=== PATIENT | male | born 1980 | race Caucasian/White ===

== ENCOUNTER 2016-07-14 13:01 | Inpatient (IN) | payer OTHER ==
[~2016-07-14] VITALS: Ht 188 cm; Wt 103.5 kg
[2016-07-14 13:07] VITALS: BP 144/100; PULSE 108; RESP 18; O2SAT 95
[2016-07-14 14:11] LABS: EOSINOPHILS % (AUTO) 0 % (0-5); Platelet Count 294 bil/L (150-400)
[2016-07-14 14:15] LABS: BASOPHILS % (AUTO) 0.1 % (0-3); MONOCYTES % (AUTO) 5.3 % (4-12); Mean Corpuscular Hemoglobin 29.2 pg (27.0-35.0)
[2016-07-14] MEDS ORDERED: 0.9% Sodium Chloride 1,000 ML IV ONE (14:35)
[2016-07-14] MEDS ORDERED: Ondansetron 8 mg ODT Tablet PO ONE (14:35)
[2016-07-14 14:40] LABS: Magnesium 2.4 mg/dL (1.6-2.6)
[2016-07-14] MEDS ORDERED: Multivitamin w/Vit K Inj 10 ML, Thiamine Inj 100 MG, Folic Acid Inj 1 MG, Magnesium Sul... IV ONE ×5 (15:12)
[2016-07-14] MEDS ORDERED: Pantoprazole 4 mg/mL 10 mL Inj IVPUSH ONE (15:15)
--- NOTE | 2016-07-14 15:49 | DRSVH ---
PROCEDURE: X-RAY CHEST ONE VIEW ([id number]) INDICATIONS: vomiting, Left ventricular hypertrophy TECHNIQUE: One view of the chest was acquired. COMPARISON: None. FINDINGS: Surgical changes and devices: None. Lungs and pleura: No pleural effusions or pneumothorax. Lungs are clear. Mediastinum: Mediastinal contours appear normal. Heart size is normal. Bones and chest wall: No suspicious bony lesions. Overlying soft tissues appear unremarkable. IMPRESSION: Normal for age, no evidence of cardiomegaly or CHF. Dictated by: Otis Betancur M.D. on 07/14/2016 at 15:47 Approved by: Otis Betancur M.D. on 07/14/2016 at 15:47
--- NOTE | 2016-07-14 15:58 | ED.REPORT ---
HPI-NVD Date of Service Jul 14, 2016 ED Provider: Beto Osborne MD 35yoM with past medical history remarkable for psoriasis presents with three days of nausea, vomiting and diarrhea. The patient states that he has thrown up approximately 5 times over these three days and the vomit is described as coffee grounds. The patient also endorses some black diarrhea. The patient states that his last meal prior to getting sick was eggs and orozco and nobody else got sick after the meal and he has no other sick contacts. The patient states that he has abdominal pain which is colic like in nature waxing and waning from 01/13 to 08/13. The worse pain is in his lower abdomen however the pain radiates up into his chest. The patient states he has never had any symptoms like this prior and was completely normal healthy prior to the onset. He denies fever or chills. He states that he has not had any food or water intake for the last three days due to the N/V. He denies taking chronic NSAIDS but states that he drinks 375mL of hard liquor daily. Nursing Notes Stated Complaint: POSSIBLE DEHYDRATION/VOMITING Chief Complaint: Male Abdominal Pain Nursing Notes Reviewed: Yes Allergies: Coded Allergies: No Known Allergies (Unverified , 07/14/16) No Active Prescriptions or Reported Meds General Time Seen by MD: 15:36 Chief Complaint Nausea, Vomiting, Diarrhea, Abd pain, cramping Hx Obtained From: Patient, Other family... (brother in law) Arrived By: Walk-in Onset Occurred: 3 days ago Symptom Duration: Since onset Vomiting: Vomiting coffee grounds, Vomiting 4-6 episodes Diarrhea: Diarrhea is bloody (described as dark tarry loose stool), Diarrhea 4- 6 episodes Location: : Abdomen lower: Chest pain: Diffuse Quality: Cramping, Dull Severity: Current: Pain level 3 out of 10 Severity: Maximum: Pain level 8 out of 10 Associated with: Reports: Abdominal pain, Anorexia, Blood in stool Recent Healthcare: No recent doctor visit Similar Sx Previous: No Past Medical History Past Medical History Psoriasis Social History Alcohol Use: >5 per day Drug Use: Denies drug use Other Social History: Good social support, Local resident ([place]) Ambulatory Status Independent Review of Systems Complete sys rev & neg: except as marked. Physical Exam Initial Vital Signs Vital Signs (First) Date Time Temp Pulse Resp B/P Pulse Ox O2 Delivery O2 Flow Rate FiO2 07/14/16 13:07 36.8 108 18 144/100 95 Room Air Initial VS: Reviewed Head / Eyes: Atraumatic, Normocephalic, PERRL ENT: Conjunctiva normal, No scleral icterus Neck: Supple, Non-tender, Full range of motion Respiratory: Breath sounds normal, Clear to auscultation, No respiratory distress Cardiovascular: Regular rate & rhythm, Heart sounds normal, Intact distal pulses Back: No CVA tenderness Lymphatic: No lymphadenopathy Extremities: Vascular intact, Neuro intact, No swelling, No tenderness Skin: Warm, Dry, No cyanosis Neurologic: Alert, Oriented, Nonfocal Psychiatric: Mood/affect normal, Behavior normal, Normal thought content Distress / Hydration: Positive: Distress mild Appearance / Presentation: Positive: Ill appearing/not toxic, Uncomfortable Abdomen: Atraumatic, Soft, No guarding, No rebound, No palpable mass, No pulsatile mass Tenderness/Guarding/Rebound: Positive: Tender diffuse Bowel Sounds / Distention: Positive: Bowel sounds hyperactive Interpretation & Diagnostics Lab Results Interpretation Result Diagram: 07/14/16 2030 07/14/16 1400 Test 07/14/16 14:00 07/14/16 14:30 Sodium Level 137mEq/L (134-144) Potassium Level 4.5mEq/L (3.5-5.2) Chloride Level 97mEq/L (97-108) Carbon Dioxide Level 21mmol/L (18-29) Blood Urea Nitrogen 17mg/dL (6-20) Creatinine 0.82mg/dL (0.76-1.27) Estimat Glomerular Filtration Rate 115mL/min (>59) Glucose Level 128mg/dL (60-99) Calcium Level 8.5mg/dL (8.5-10.1) Magnesium Level 2.4mg/dL (1.6-2.6) Total Bilirubin 0.8mg/dL (0.0-1.2) Aspartate Amino Transf (AST/SGOT) 57U/L (0-50) Alanine Aminotransferase (ALT/SGPT) 70U/L (0-44) Alkaline Phosphatase 81U/L (25-150) Total Protein 7.6g/dL (6.4-8.4) Albumin 4.7g/dL (3.4-5.0) Lipase 20U/L (13-60) Hold Galvez Top Tube Received (Received) Alcohol, Quantitative 316mg/dL (0-10) Point of Care Testing: Guaiac - heme positive ECG Interpretation ECG Interpretation: Sinus rhythm LVH Interpreted by: ED physician Normal ECG Interpretation: Normal rate, Normal sinus rhythm, No acute ischemic changes Atrium and Vent Size: Ventricle enlarged - L X-Ray Chest Interpretation Chest Xray Interpretation: IMPRESSION: Normal for age, no evidence of cardiomegaly or CHF. Dictated by: Otis Betancur M.D. on 07/14/2016 at 15:47 View: Portable, 1 view Interpretation / Wet Read by: Interpret - Radiologist Re-Eval/Medical Decision Med Decision/Clinical Course 35yoM with psoriasis and alcohol use disorder with 3 days of NVD with reports of coffee ground emesis and dark tarry stool. CBC positive for polycythemia and leukocytosis. CMP positive for transaminitis. Stool guiac positive. CXR ordered checking for cardiomegally and pneumomediastinum currently pending. Oral Zofran started prior to IV started. Running 1L NS and 1L banana bag for thiamine replacement. R/U unstable GI bleed and borhave. Patient care transferred to ne, Dr. Beto Osborne, at 15:00. Reviewed vital signs. Borderline tachycardic at 108 but otherwise stable. Labs Reviewed as follows. Leukocytosis 10.2 Hemo concentration Hct 51.5 No significant electrolyte abnormalities Good renal function Mildly elevated transaminases EtOH 316 Rechecked at 17:00. History reviewed: 3 days of nausea, vomiting, increased sleeping and generalized malaise. Pt noticed blood since onset. Pt denies any history of gastric ulcers. No ibuprofen or Naproxen. Last drank alcohol 2 days ago. Daily the patient drinks 1/2 fifth. On exam the patient has tenderness to the epigastrium with emesis basis at bedside that does appear coffee ground. Will contact GI. Patient unable to explain why his blood alcohol is greater than 300 despite not drinking in 2 days. She continued with significant nausea and coffee ground emesis and was treated with: Reglan Benadryl Patient discussed with Dr. Mosqueda (GI), he requests PPI drip, NPO at midnight and admission to hospitalist service with plan for upper endoscopy in the morning. Discussed with the admitting hospitalist and transferred in stable condition. Consultation #1: Referral / Consult Name: Otto Goldberg MD Call Returned at: 18:06 Note: Liquor Runner- Request admit. NPO at midnight. PPI lynn. Will see tomorrow. Consultation #2: Referral / Consult Name: Je Arriola MD Consulted With: Hospitalist Call Returned at: 18:23 Oracle Ebs Developer: Will see patient, Agrees with eval, Agrees with plan, Accepts admit Differential Diagnosis: Positive: Acute gastroenteritis, Boerhaave syndrome, Dehydration, Gastritis, Hepatitis (not standard AST:ALT ratio of 2:1 for alcoholic hepatitis), Kat-Rico syndrome Counseled Regarding: Diagnosis, Lab results, Need for admission Discharge & Departure Shift Change Sign-Out Patient Care Transferred: Yes Discussed Complaint(s): Yes Laboratory Evaluation: Ordered, not yet done Additonal Information: Awaiting labs, hydration. Family reassessment reevaluation and disposition planning. Care reviewed with Dr. Osborne. Impression: Primary Impression: Coffee ground emesis Additional Impressions: Upper GI bleed Alcohol abuse Tachycardia Dehydration Disposition: ADMITTED TO HOSPITAL Discharge Condition All VS Reviewed: Yes Referrals: NOPCP (PCP) Care Transferred to: Dr. Osborne Care Transferred at: 15:00 Crit Care Except Billable Proc Time Spent: 30-74 minutes Services Performed: Patient management by me, Time spent at bedside, Reviewing test results, Reviewing imaging, Discussing patient care, Documentation in record, Time with fam/surrogate EDSupervising Provider for APC: Beto Osborne MD Attestation Portions of this note were transcribed by Lainey Fitzgerald. I, (Dr. Osborne) personally performed supplemental history, physical exam and medical decision- making; I reviewed and confirmed the accuracy of the information in the transcribed note. Signed by: Lainey Fitzgerald. Naldoibjackie, 07/14/2016, 1802 Attending Statement Patient seen and examined with the resident. Care turned over to Dr. Osborne at Change of Shift ENMANUEL LEIGH DO Jul 14, 2016 15:54 Mayra Mayo MD Jul 14, 2016 15:57 Lainey Fitzgerald Jul 14, 2016 16:31 Beto Osborne MD Jul 14, 2016 18:16 Discussed Complaint(s): Yes Laboratory Evaluation: Ordered, not yet done Additonal Information: Awaiting labs, hydration. Family reassessment reevaluation and disposition planning. Care reviewed with Dr. Osborne. Impression: Primary Impression: Coffee ground emesis Additional Impressions: Upper GI bleed Alcohol abuse Tachycardia Dehydration Disposition: ADMITTED TO HOSPITAL Discharge Condition All VS Reviewed: Yes Referrals: NOPCP (PCP) Care Transferred to: Dr. Osborne Care Transferred at: 15:00 Crit Care Except Billable Proc Time Spent: 30-74 minutes Services Performed: Patient management by me, Time spent at bedside, Reviewing test results, Reviewing imaging, Discussing patient care, Documentation in record, Time with fam/surrogate EDSupervising Provider for APC: Beto Osborne MD Scribe Attestation Portions of this note were transcribed by Lainey Fitzgerald. I, (Dr. Osborne) personally performed supplemental history, physical exam and medical decision- making; I reviewed and confirmed the accuracy of the information in the transcribed note. Signed by: Lainey Fitzgerald. Rosie, 07/14/2016, 1802 Attending Statement Patient seen and examined with the resident. Care turned over to Dr. Osborne at Change of Shift ENMANUEL LEIGH DO Jul 14, 2016 15:54 Mayra Mayo MD Jul 14, 2016 15:57 Lainey Fitzgerald Jul 14, 2016 16:31 Beto Osborne MD Jul 14, 2016 18:16
[2016-07-14] MEDS ORDERED: Ondansetron 2 mg/mL 2 mL Inj ONE (16:32)
[2016-07-14 16:50] VITALS: BP 152/101; PULSE 91; RESP 16; O2SAT 98
[2016-07-14] MEDS ORDERED: MetoCLOpramide 5 mg/mL 2 mL Inj IVPUSH PRN (17:15)
[2016-07-14] MEDS ORDERED: Albuterol 2.5 mg/3 mL Inhalation Solution NEB ONE (17:26)
[2016-07-14] MEDS ORDERED: Lactated Ringer's 1,000 ML IV SCH (18:09)
[2016-07-14] MEDS ORDERED: Ondansetron 2 mg/mL 2 mL Inj IVPUSH PRN (18:10)
[2016-07-14] MEDS ORDERED: Pantoprazole Inj 80 MG, Pharmacy To Mix 1 EA in 0.9% Sodium Chloride 80 ML IV ONE ×2 (18:15)
[2016-07-14] MEDS ORDERED: Polyethylene Glycol (PEG) 17 Gm Powder PO PRN (18:35)
[2016-07-14] MEDS ORDERED: Alum-Mag Hydrox-Simeth 30 mL Suspension PO PRN (18:35)
[2016-07-14 19:06] VITALS: BP 135/81; PULSE 90; RESP 22; O2SAT 99
--- NOTE | 2016-07-14 19:27 | PCM.HPMED ---
Subjective Date of Service Jul 14, 2016 Primary Provider: Admitting Physician: Je Arriola MD Primary Care Physician: Fe Attending Physician: Je Arriola MD Admit Status: From the Emergency Department, Full Admit Chief Complaint: Coffee-ground emesis/3 days Dark loose stool/3 days Epigastric pain/ 3 days History of Present Illness: 35-year-old gentleman with no significant past medical history came to emergency room due to Coffee-ground emesis,dark loose stool and epigastric pain of 3 days. He states he had multiple episodes of coffee-ground emesis last 3 days. He also had dark loose stool. He complains of intermittent, colicky, nonradiating, epigastric pain,5-6/10. Drinks alcohol, 1/2 a fifth of Vodka daily. Last drink this morning Denies aspirin, NSAIDs or any blood thinner use . No abdominal distention or any stigmata of cirrhosis. Denies fever In ED, HR 108, BP 144/100, sats 95% on RA, WBC 10.0,Hb 17.9, platelets 290, AST 57, ALT 70, lipase 20, alcohol level 316 IV fluids given, Protonix drip started, GI consulted and plans to do EGD tomorrow Review of Systems: Comprehensive review of systems performed, pertinent positives and negatives included in history of present illness Allergies Coded Allergies: No Known Allergies (Unverified , 07/14/16) Home Medications none PMH Psoriases Alcohol drinking Surgical History Hernia repair ankle surgery for Leg cellulitis Right hand surgery Family History Both parents are alive, no medical issues Social History Occupation: director construction services Hx Alcohol Use: Yes ("DAILY" LAST DRANK 07/14, drinks half a fifth of vodka daily ) Hx Substance Use: No (DENIES) Exam Vital Signs Vital Sign - Last Date Time Temp Pulse Resp B/P Pulse Ox O2 Delivery O2 Flow Rate FiO2 07/14/16 19:06 90 22 135/81 99 Room Air 07/14/16 13:07 36.8 Exam Gen. Acutely sick looking, actively vomiting, small amount of coffee-ground emesis seen in a bowl at bedside HEENT: Head is normocephalic atraumatic, Pupils equal and reactive, extraocular movements intact, Lungs clear to auscultation bilaterally Heart regular rate and rhythm without murmurs gallops or rubs Abdomen soft nontender without hepatosplenomegaly Extremities pulses are present dorsalis pedis posterior tibialis and radial. tSkin is warm and dry there are no rashes, Psych alert and oriented to person place and time Neuro cranial nerves II through XII are grossly intact Lymph: There is no lymphadenopathy appreciated in the cervical supra infraclavicular regions : no estes Lab and Diagnostics Result Diagram: 07/14/16 1400 07/14/16 1400 X-Rays, CTs and MRIs CXr IMPRESSION: Normal for age, no evidence of cardiomegaly or CHF. Dictated by: Otis Betancur M.D. on 07/14/2016 at 15:47 Assessment & Plan 35-year-old gentleman with no significant past medical history came to emergency room due to Coffee-ground emesis,dark loose stool and epigastric pain of 3 days # Upper GI bleeding, POA, acute -Possibly due to alcoholic erosive gastritis,PUD possible -Continue IV fluids at 100ml/h -Continue Protonix drip -npo -EGD tomorrow -Serial hemoglobin -Zofran as needed #Dehydration -Hemoglobin 17.9, hemoconcentrated -2 L Ns bolused, continue with 100ml/h -Serial hematocrits # Transaminitis -Due to alcohol -Follow-up LFT # Alcohol abuse disorder -Alcohol level 316, unlikely to withdraw now -watch out for withdrawal syndrome -banana bag given in ED -Counseled - referral for outpatient resources information ppx:ppi drip,no dvt ppx given GI bleed full code Je Arriola MD Jul 14, 2016 19:27
[2016-07-14 19:51] VITALS: BP 135/81; PULSE 90; RESP 22; O2SAT 99
[2016-07-14 20:03] LABS: APPEARANCE,URINE HAZY (CLEAR,HAZY); COLOR,URINE YELLOW (YELLOW); OCCULT BLOOD,URINE NEGATIVE (NEGATIVE); PH,URINE 6.5 (5.0-8.0); UROBILINOGEN,URINE NORMAL (NORMAL)
[2016-07-14 20:05] VITALS: BP 139/70; PULSE 61; RESP 20; O2SAT 98
[2016-07-14 20:07] VITALS: PULSE 85
[2016-07-14] MEDS: Pantoprazole Inj 80 MG in 0.9% Sodium Chloride 80 ML IV SCH (20:08)
[2016-07-14] MEDS: 0.9% Sodium Chloride 1,000 ML IV SCH (20:08)
[2016-07-14] MEDS ORDERED: Promethazine 25 mg/mL Inj IV PRN (20:15)
[2016-07-14] MEDS ORDERED: PROMETHAZINE IV PRN (20:30)
[2016-07-14] MEDS ORDERED: SODIUM CHLORIDE PHA MIX 0.9% IV PRN (20:30)
[2016-07-14 20:45] LABS: BASOPHILS % (AUTO) 0.2 % (0-3); EOSINOPHILS % (AUTO) 0.2 % (0-5); Mean Corpuscular Hemoglobin 30.1 pg (27.0-35.0); Mean Corpuscular Volume 85.7 fL (81-100); NEUTROPHILS % (AUTO) 71.6 % (40-74); Platelet Count 221 bil/L (150-400)
[2016-07-15] VITALS (9 sets, daily range): BP systolic 120–147; BP diastolic 68–82; PULSE 64–86; RESP 17–20; O2SAT 96–99
[2016-07-15] MEDS: 0.9% Sodium Chloride 1,000 ML IV SCH ×4 (04:29→21:45)
[2016-07-15 06:46] LABS: BASOPHILS % (AUTO) 0.2 % (0-3); EOSINOPHILS % (AUTO) 1.9 % (0-5); MONOCYTES % (AUTO) 8.4 % (4-12); Mean Corpuscular Hemoglobin 29.8 pg (27.0-35.0); Mean Corpuscular Volume 86.3 fL (81-100); NEUTROPHILS % (AUTO) 56.4 % (40-74); Platelet Count 177 bil/L (150-400)
[2016-07-15] MEDS ORDERED: Ketamine 10 mg/mL 20 mL Inj ONE (08:57)
[2016-07-15] MEDS ORDERED: fentaNYL-PF 50 mCg/mL 2 mL Inj ONE (08:57)
[2016-07-15] MEDS: Pantoprazole Inj 80 MG in 0.9% Sodium Chloride 80 ML IV SCH (10:00)
[2016-07-15] MEDS ORDERED: Propofol 10,000 mCg/mL 20 mL Inj ONE (10:39)
[2016-07-15 12:42] LABS: INR 1.03 ratio
--- NOTE | 2016-07-15 12:46 | PCM.PNMED ---
Subjective Date of Service Jul 15, 2016 Subjective 35-year-old gentleman with no significant past medical history came to emergency room due to Coffee-ground emesis,dark loose stool and epigastric pain of 3 days. This morning he is sleeping, he easily awakes. He is mildly diaphoretic and tremulous with motion in hands bilaterally, he states he has restless legs. He continues to have epigastric pain and generally feels unwell with diarrhea. Exam Vital Signs Vital Sign - Last Date Time Temp Pulse Resp B/P Pulse Ox O2 Delivery O2 Flow Rate FiO2 07/15/16 05:10 36.9 86 20 136/75 97 Room Air Intake and Output 07/14/16 07/14/16 07/15/16 Cumulative From/Thru 15:00 23:00 07:00 07/14/16 13:07 - 07/15/16 06:21 Intake Total 1000 ml 1348 ml 2348 ml Balance 1000 ml 1348 ml 2348 ml Intake IV Total 1000 ml 1348 ml 2348 ml Exam General: Mildly diaphoretic, well-developed, well-nourished, appropriately interactive HEENT: Normocephalic, atraumatic. External ears without defect. Neck: Supple with full range of motion. No jugular venous distension. Cardiovascular: Regular rate and rhythm with no murmurs, rubs, or gallops appreciated Pulmonary: Clear to auscultation bilaterally with no crackles, wheezes, or rhonchi. Normal respiratory effort with no use of accessory muscles. Abdomen: Bowel tones present. Soft, nontender, nondistended. No hepatosplenomegaly or masses appreciated. Extremities: No clubbing, cyanosis, edema, or lymphadenopathy appreciated. Skin: Normal temperature, turgor, and texture; no rash, ulcers, or subcutaneous nodules appreciated. Neurological: Cranial nerves grossly intact. Normal muscle strength, tone, and bulk. tremulous in hands with movement, No known gait impairment. Psychiatric: Normal mood and affect. Alert and oriented to person, place, and time. Lab and Diagnostics Result Diagram: 07/15/16 0632 07/14/16 1400 X-Rays, CTs and MRIs CXr IMPRESSION: Normal for age, no evidence of cardiomegaly or CHF. Dictated by: Otis Betancur M.D. on 07/14/2016 at 15:47 Assessment & Plan 35-year-old gentleman with no significant past medical history came to emergency room due to Coffee-ground emesis,dark loose stool and epigastric pain of 3 days 1. Upper GI bleeding, POA, acute -Possibly due to alcoholic erosive gastritis,PUD possible -Continue IV fluids at 100ml/h -Continue Protonix drip -NPO -EGD this afternoon -Serial hemoglobin [id number] -Zofran as needed 2. Dehydration -Hemoglobin 17.9, hemoconcentrated -2 L Ns bolused on admission, continue with 100ml/h -Serial hematocrits [id number] 3. Transaminitis -Likely due to alcohol consumption -Follow-up LFT 4. Alcohol abuse disorder -Alcohol level 316 in ED, unlikely to withdraw now -watch out for withdrawal syndrome, -CINM protocol initiated -banana bag given in ED -Counseled -SW referral for outpatient resources information GI propholaxis:ppi drip, SCD's only for dvt ppx due to GI bleed Full code Pain Evaluation: Adequate Pain Control GI Prophylaxis: Proton Pump Inhibitor VTE Mechanical Devices: Intermittant Pneumatic CD Resuscitation Status: CPR: Attempt Resuscitation Attending Statement The patient was seen and examined together with Dr. Narvaez on 07/15/2016 and I agree with the history, exam and plan as outlined in the note above. Whitney Narvaez DO Jul 15, 2016 07:02 Navin Krause MD Jul 16, 2016 11:49
[2016-07-15 12:58] LABS: Creatine Kinase 440 U/L (21-232); Phosphorus 2.7 mg/dL (2.5-4.9)
--- NOTE | 2016-07-15 14:21 | PCM.HPANE ---
Patient Data Surgeon Admitting Provider:Je Arriola MD Attending Provider:Je Arriola MD Primary Care Physician:Nopcp Other Provider: Reason for Visit Coffee Ground Emesis Ht/WT & BMI Height (Feet): 6 Height (Inches): 2.00 Weight (Kilograms): 103.500 Body Mass Index 29.00 Allergies Coded Allergies: No Known Allergies (Unverified , 07/14/16) Past Anesthesia History Anesthesia History: Denies:: Abnormal Airway, Anesthesia Reactions, Difficult Intubation Diabetes History Hx Diabetes?: No MRSA MRSA: No Medications Hypertension Medication: No Home Meds Incl Beta Blanca: No No Active Prescriptions or Reported Meds History History of ENT Problems?: No HEENT History: Denies:: Abnormal Airway Difficult Intubation Teeth Condition: Missing Teeth Other HEENT Pertinent History: MISSING UPPER TWO FRONT TEETH Hx of Heart Problems?: No Cardiovascular History: Denies:: Congestive Heart Failure Hypertension Hx of Respiratory Problem?: No Respiratory History: Denies:: Tuberculosis Hx Neurologic Problems?: No Neurological History: Denies:: CVA Hx of GI Problems?: Yes Gastrointestinal History: Positive for:: Gastrointestinal Bleeding (current) Rectal Bleeding (BLACK) Denies:: Gall Bladder Disease Liver Disease Other GI Pertinent History: alcoholism Hx of Problems?: No Male Hx: Denies:: Prostate Problems Scrotal Mass Testicular Surgery Hx Musculoskeletal Problems?: No Hx of Psycho/Social Problems?: No Hx Surgeries?: Yes (HERNIA, CELLULITIS (LEFT ANKLE)) Hx Any Other Health Problems?: Yes Other History: Denies:: Cancer Hospitalization Thyroid Disease History Blood Transfusions: Positive for:: Accept Blood Products? Denies:: Blood Transfusions Hx Diabetes: No Occupation: construction workerHx Alcohol Use: Yes ("DAILY" LAST DRANK 07/14, drinks half a fifth of vodka daily)Hx Substance Use: No (DENIES) Smoking Status: Current Every Day Smoker Have You Smoked inLast 12 mo: YesApprox How Many Cigarettes/day: 5 CIGS/DAILY Stop/Bang Treated for Sleep Apnea?: No Do You Have a CPAP Machine?: No S-Snoring: Do You Snore Loudly: No T-Tired: feel tired, fatigued: No O-Obsered: Observed not breath: No P-Blood Pressure: treated: No B- Body Mass Index > 35 kg/m2: No A- Age over 50: No N- Neck Large Circumference: No G- Gender Male: Yes CULLEN Total Score: 1 Risk Assessment Category Category 1A: Patient has history of documented sleep apnea, and HAS NOT received any narcotic, sedative or anesthesia administration during this stay. Category 1B: Patient has history of documented sleep apnea, and HAS received any narcotic , sedative or anesthesia administration during this stay Category 2: Patient has SUSPECTED Obstructive Sleep Apnea, and HAS received any narcotic , sedative or anesthesia administration during this stay. Category 3: Patient has SUSPECTED Obstructive Sleep Apnea and HAS NOT received narcotic, sedative or anesthesia administration during this stay. Category 4: Outpatient in Procedural Areas with known sleep apnea or who screen positive for High Risk via the STOP/BANG questionnaire. Exam Exam Vital Signs Vital Signs Date Time Temp Pulse Resp B/P Pulse Ox O2 Delivery O2 Flow Rate FiO2 07/15/16 10:16 36.9 82 20 129/69 97 Room Air 07/15/16 08:00 86 General Appearance: Alert, Oriented X3, Cooperative, Mild Distress HEENT/AIRWAY: MP 2 Lungs: Clear to Auscultation, Normal Air Movement Heart: Exam Unremarkable, Regular Rate/Rhythm, No Murmurs/Rubs/Gallops Meds/Labs/Diagnostics Admission Meds Current Medications Ondansetron HCl 8 mg 8 mg ONCE ONCE PO Last administered on 07/14/16 15:00; Start 07/14/16 at 14:35; Stop 07/14/16 at 14:46; Status DC Sodium Chloride 1,000 ml @ 0 mls/hr Q0M ONCE IV Last administered on 07/14/16 15:00; Start 07/14/16 at 14:35; Stop 07/14/16 at 14:46; Status DC Multivitamins/ Thiamine HCl/ Folic Acid/ Magnesium Sulfate/ Sodium Chloride ( Influvite Adult Inj/Vitamin B1 Inj/Folic Acid Inj/Magnesium Sulfate 50% Inj/ Normal Saline) 1,015.2 ml @ 508 mls/ hr Q2H ONCE IV Last administered on 16:10; Start 07/14/16 at 15:12; Stop 07/14/16 at 17:11; Status DC Pantoprazole (Protonix Inj) 40 mg ONCE ONCE IVPUSH Last administered on 16:10; Start 07/14/16 at 15:15; Stop 07/14/16 at 15:16; Status DC Ondansetron HCl (Zofran Inj) 8 mg STK-MED ONCE .ROUTE Last administered on 16:41; Start 07/14/16 at 16:32; Stop 07/14/16 at 16:35; Status DC Diphenhydramine HCl 25 mg 25 mg ONCE ONCE IVPUSH Last administered on 17:46; Start 07/14/16 at 17:15; Stop 07/14/16 at 17:16; Status DC Sodium Chloride 1,000 ml @ 125 mls/hr Q8H IV Last administered on 07/15/16 13: 18; Start 07/14/16 at 18:35 Pantoprazole/ Sodium Chloride (Protonix Inj/ Normal Saline) 100 ml @ 10 mls/hr Q10H IV Last administered on 07/15/16 10:00; Start 07/14/16 at 19:10 Chlorpromazine (Thorazine) 25 mg TID PO Last administered on 07/15/16 00:21; Start 07/15/16 at 00:05 Labs Test 07/14/16 14:00 07/14/16 14:30 07/14/16 19:45 07/15/16 06:32 Magnesium Level 2.4mg/dL (1.6-2.6) Lipase 20U/L (13-60) Hold Galvez Top Tube Received (Received) Alcohol, Quantitative 316mg/dL (0-10) Urine Color Yellow (YELLOW) Urine Appearance Hazy (CLEAR,HAZY) Urine pH 6.5 (5.0-8.0) Urine Specific [place] 1.025 (1.003-1.035) Urine Protein Negativemg/dL (NEG,TRACE) Urine Glucose (UA) Negativemg/dL (NEGATIVE) Urine Ketones Negativemg/dL (NEGATIVE) Urine Occult Blood Negative (NEGATIVE) Urine Nitrite Negative (NEGATIVE) Urine Bilirubin Negative (NEGATIVE) Urine Urobilinogen Normalmg/dL (NORMAL) Urine Leukocyte Esterase Negative (NEGATIVE) Urine RBC 0-2/hpf (0-2) Urine WBC 0-5/hpf (0-5) Urine Epithelial Cells None/hpf (NONE-MOD) Urine Crystals None seen (NONE SEEN) Urine Bacteria Few/hpf (NONE-FEW) Urine Hyaline Casts None/lpf (NONE) Urine Granular Casts None seen (NONE SEEN) Urine Waxy Casts None seen (NONE SEEN) Urine Red Blood Cell Casts None seen (NONE SEEN) Urine White Blood Cell Casts None seen (NONE SEEN) Urine Mucus Present (None Seen) Urine Trichomonas None seen (NONE SEEN) Urine Yeast None (NONE SEEN) Urinalysis Comment None Urine Culture Reflexed Not indicated White Blood Count 10.1th/mm3 (3.8-10.1) Red Blood Count 4.73mil/mm3 (4.40-5.80) Mean Corpuscular Volume 86.3fL (81-100) Mean Corpuscular Hemoglobin 29.8pg (27.0-35.0) Mean Corpuscular Hemoglobin Concent 34.6% (32.0-37.0) Red Cell Distribution Width 12.8% (12.3-15.4) Platelet Count 177bil/L (150-400) Neutrophils (%) (Auto) 56.4% (40-74) Lymphocytes (%) (Auto) 32.9% (14-46) Monocytes (%) (Auto) 8.4% (4-12) Eosinophils (%) (Auto) 1.9% (0-5) Basophils (%) (Auto) 0.2% (0-3) Sodium Level 141mEq/L (134-144) Potassium Level 4.1mEq/L (3.5-5.2) Chloride Level 104mEq/L (97-108) Carbon Dioxide Level 22mmol/L (18-29) Blood Urea Nitrogen 14mg/dL (6-20) Creatinine 0.90mg/dL (0.76-1.27) Estimat Glomerular Filtration Rate 103mL/min (>59) Glucose Level 83mg/dL (60-99) Calcium Level 7.8mg/dL (8.5-10.1) Total Bilirubin 1.4mg/dL (0.0-1.2) Aspartate Amino Transf (AST/SGOT) 44U/L (0-50) Alanine Aminotransferase (ALT/SGPT) 49U/L (0-44) Alkaline Phosphatase 60U/L (25-150) Total Protein 5.3g/dL (6.4-8.4) Albumin 3.6g/dL (3.4-5.0) Test 07/15/16 12:18 07/15/16 13:00 Prothrombin Time 11.0sec (8.1-12.5) Prothromb Time International Ratio 1.03ratio Activated Partial Thromboplast Time 25.9sec (22.8-33.0) Phosphorus Level 2.7mg/dL (2.5-4.9) Ammonia 33ug/dL (18-53) Total Creatine Kinase 440U/L (21-232) Creatine Kinase MB 2.5ng/mL (0.0-10.4) Creatine Kinase MB % % (0.0-5.0) Hemoglobin 14.1g/dL (13.8-17.2) Hematocrit 40.8% (41.0-50.0) Plan Impression Patient chart reviewed, patient interviewed and anesthestic plan with risks, benefits, and alternatives discussed, and informed consent obtained. ASA Physical Status: ASA3 Severe Disease (Severe alcoholism) Anesthetic Plan: MAC Bene/Risks/Altern/Consents: Yes HP Complete Prior to Induction: Yes Cole Mondragon MD Jul 15, 2016 14:21
[2016-07-15] MEDS ORDERED: Lactated Ringer's 1,000 ML IV SCH (14:22)
--- NOTE | 2016-07-15 15:46 | ENDO ---
[address] [address] ENDOSCOPY PROCEDURE PATIENT: SUNNY ORONA : 1980 MR#: [id number] ADMIT: 07/14/2016 JOB ID: [id number] DATE OF SERVICE: 07/15/2016 PROCEDURE: Esophagogastroduodenoscopy with biopsy. INDICATIONS: A 35-year-old male with three days of coffee-grounds emesis. EQUIPMENT: [id number]. SEDATION: Monitored anesthesia as provided by Dr. Cole Mondragon. COMPLICATIONS: None identified. PROCEDURE INFORMATION: After the risks and benefits were explained, written and verbal informed consent was obtained. The patient was brought into the endoscopy suite and placed into the left lateral decubitus position. Sedation was achieved as above. The scope was introduced into the mouth through the bite block, and advanced under direct visualization through the oropharynx, esophagus, stomach, and on to the second portion the duodenum. The scope was slowly withdrawn to carefully examine the mucosa for any defects or lesions. Retroflexed views were accomplished in the stomach. The stomach was decompressed. The scope removed from the patient who tolerated the procedure well. FINDINGS: 1. Duodenum: No significant pathology was appreciated from the bulb through to the second portion. 2. Stomach: The patient had a diffuse nonspecific gastropathy seen throughout. No mass lesions. No ulcers. No outlet obstruction. Random biopsy was taken for exclusion of helicobacter or any other underlying histopathology. Retroflexed views of the LES were unremarkable. 3. Esophagus: The squamocolumnar junction generally correlated with the top of the gastric folds. The GE junction was at approximately 43 cm from the incisors and the diaphragmatic pinchcock was at about 44 cm from the incisors. For the distal 2-3 cm of the esophagus, there was evidence of friable LA grade D ulcerative and erosive esophagitis. ENDOSCOPIC DIAGNOSES: 1. Severe esophagitis. 2. Small sliding hiatal hernia. 3. Gastropathy. RECOMMENDATIONS: 1. Await histopathology. 2. Continue b.i.d. PPI therapy. The drip can be stopped this evening after his first oral dose of Protonix. 3. Following recovery from sedation, I see no reason the patient cannot be started on at least clear liquids and advanced as tolerated. 4. Continue to monitor and treat aggressively for alcohol withdrawal symptoms. 5. As mentioned in my consultation note, if he has any persisting symptoms, I would recommend further investigation with perhaps abdominal CT to exclude evolving appendicitis. 6. If helicobacter is found, it will need to be eradicated with standard triple therapy. 7. Long-term, obviously, the patient needs to become fully abstinent from alcohol. He would benefit likely from outpatient substance abuse counseling. 8. I would recommend he be on oral b.i.d. Protonix therapy for the next two weeks and then reduce it down to once daily thereafter. I would say that there is a reasonable chance he may be able to even taper off of that in the months to come if he is able to be successful at maintaining sobriety.
--- NOTE | 2016-07-15 16:02 | CONS ---
[address] [address] CONSULTATION REPORT PATIENT: SUNNY ORONA : 1980 MR#: [id number] ADMIT: 07/14/2016 JOB ID: [id number] DATE OF SERVICE: 07/15/2016 GASTROENTEROLOGY CONSULTATION: REQUESTING PROVIDER: Mayra Mayo MD REASON FOR CONSULTATION: Coffee-ground emesis. HISTORY OF PRESENT ILLNESS: This is a 35-year-old male heavy drinker who started to experience recurrent emesis about three days ago. He has had some low down abdominal pain more so on the right side. He was admitted for observation overnight. H and H have not fallen into an unsafe range. He was hemoconcentrated on admission with a hemoglobin was 17.9. ALLERGIES: No known drug allergies. MEDICATIONS: Very rare ibuprofen, none recently. Otherwise, no regular drugs. PAST MEDICAL HISTORY: 1. Heavy chronic alcohol abuse. 2. Psoriasis. 3. Left sided (? inguinal) hernia repair. 4. Ankle surgery. 5. Right hand surgery. FAMILY HISTORY: Noncontributory. 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 He was incarcerated last year and did not drink during his incarceration. Currently he takes approximately half of a fifth of vodka per day. In recent memory, he increased his alcohol intake by drinking higher potency spirit. No other substances. REVIEW OF SYSTEMS: The patient overall feels improved today but continues to have a little bit of discomfort in the right lower quadrant. He gets withdrawal symptoms within 48 hours of his last drink. His review is otherwise as above. PHYSICAL EXAMINATION: Vital signs stable. Blood pressure 129/69, pulse 82, breathing 20, temperature 36.9, 97% on room air. The patient was in no distress. Slightly tremulous, alert, oriented, appropriate, cooperative, conversational. Lungs clear bilaterally. Heart regular. No significant peripheral pitting edema. The abdomen was soft. The patient pointed to the right lower quadrant. He did not have any significant guarding and I did not appreciate any rebound tenderness at present. LABORATORIES: Hemoglobin is down to 14.1. White count went from 10.2-12.1-10.1. His differential is completely normal. INR was 1.03. Platelets were 177. MCV is 86.3. Initial BUN 17. Creatinine today was 0.9. Calcium 7.8. Bilirubin 1.4. AST 44, ALT 49, alk phos 60. Albumin 3.6. Protein 5.3. Blood alcohol level yesterday was 316. No evidence of urinary tract infection. Hepatitis serologies are pending. IMAGING: Chest x-ray from yesterday was thought to be normal for age. ASSESSMENT AND PLAN: This is a 35-year-old alcoholic male with three days symptoms of recurrent nausea, vomiting and coffee-ground emesis. He presented hemoconcentrated and had heme-negative stool. With hydration his blood count has perhaps appropriately dropped. I do not sense any ongoing active hemorrhage but certainly an upper endoscopy is reasonable to evaluate for source. Depending on our findings, if the abdominal symptoms were to persist, then I would recommend further assessment and even imaging with the likes of CT abdomen and pelvis to evaluate the appendix. The risks of the procedure were discussed with the patient including the possibility of bleeding, perforation, need for emergency surgery, hemodynamic instability from sedation medications. Because of his heavy alcohol use, I have requested anesthesia for his sedation needs.
[2016-07-15] MEDS: Thiamine Inj 100 MG in 0.9% Sodium Chloride 100 ML IV SCH (16:30)
[2016-07-15] MEDS: Multivit-Miner-Folic Acid-Iron Tablet PO SCH (16:52)
[2016-07-15] MEDS: Pantoprazole 40 mg ER24 Tablet PO SCH (16:52)
--- NOTE | 2016-07-15 19:45 | PCM.ANEP1 ---
Post Anesthesia Phase 1 PACU Phase 1 Assessment Vital Signs Vital Signs Date Time Temp Pulse Resp B/P Pulse Ox O2 Delivery O2 Flow Rate FiO2 07/15/16 17:19 37.1 64 20 145/81 99 Room Air 07/15/16 15:31 75 17 141/69 98 Room Air 07/15/16 15:22 65 17 147/69 98 Room Air 07/15/16 15:14 70 17 146/72 98 Room Air Anesthetic Administered: MAC Level of Alertness: Awake, talking ORELLANA's with Equal Strength: Yes Pain: No Nausea or Vomiting: No Oxygen Delivery: Nasal Cannula Lungs: Clear to Auscultation, Normal Air Movement Dermatome Level: Full Sensation Cole Mondragon MD Jul 15, 2016 19:45
--- NOTE | 2016-07-15 19:45 | PCM.ANEP2 ---
Post Anesthesia Evaluation ASA/CMS Post Anesthesia VS in Patient's Normal Range?: Yes Resp Stable; Airway Patent?: Yes CV Function & Hydration Stable: Yes Mental Status Recovered?: Yes Pain control Satisfactory?: Yes N/V Control Satisfactory?: Yes Cole Mondragon MD Jul 15, 2016 19:45
[2016-07-16] VITALS (8 sets, daily range): BP systolic 119–167; BP diastolic 74–91; PULSE 48–99; RESP 16–20; O2SAT 96–98
[2016-07-16 05:08] LABS: Hepatitis A Antibody IgM Negative (Negative); Hepatitis B Core Antibody IgM Negative (Negative)
[2016-07-16] MEDS: 0.9% Sodium Chloride 1,000 ML IV SCH ×2 (05:43→11:56)
[2016-07-16 06:20] LABS: BASOPHILS % (AUTO) 0.1 % (0-3); EOSINOPHILS % (AUTO) 3.8 % (0-5); MONOCYTES % (AUTO) 6.5 % (4-12); Mean Corpuscular Hemoglobin 29.7 pg (27.0-35.0); Mean Corpuscular Volume 86.5 fL (81-100); NEUTROPHILS % (AUTO) 66.2 % (40-74); Platelet Count 141 bil/L (150-400)
[2016-07-16 07:10] LABS: Vitamin B12 458 pg/mL (211-946)
[2016-07-16] MEDS: Pantoprazole 40 mg ER24 Tablet PO SCH ×2 (08:08→16:37)
[2016-07-16] MEDS: Thiamine Inj 100 MG in 0.9% Sodium Chloride 100 ML IV SCH (08:08)
[2016-07-16] MEDS: Multivit-Miner-Folic Acid-Iron Tablet PO SCH (08:08)
--- NOTE | 2016-07-16 15:19 | PCM.PNMED ---
Subjective Date of Service Jul 16, 2016 Subjective 35-year-old gentleman with no significant past medical history came to emergency room due to Coffee-ground emesis,dark loose stool and epigastric pain of 3 days. He continues to have diarrhea, 5-6 episodes over night. He has been on CIWA protocol requiring 30mg of Diazepam overnight. He endorses some mild chest pain maybe from reflux. Otherwise he is feeling anxious but resting between needing to get up to go to the bathroom. Exam Vital Signs Vital Sign - Last Date Time Temp Pulse Resp B/P Pulse Ox O2 Delivery O2 Flow Rate FiO2 07/16/16 05:14 36.7 70 18 167/83 98 Room Air Intake and Output 07/15/16 07/15/16 07/16/16 Cumulative From/Thru 15:00 23:00 07:00 07/14/16 13:07 - 07/16/16 06:55 Intake Total 200 ml 2340 ml 2321 ml 7209 ml Output Total 0 ml 850 ml 1025 ml 1875 ml Balance 200 ml 1490 ml 1296 ml 5334 ml Intake Oral 0 ml 900 ml 800 ml 1700 ml IV Total 200 ml 1440 ml 1521 ml 5509 ml Output Urine Total 0 ml 850 ml 525 ml 1375 ml Urine/Stool Mix 500 ml 500 ml # Bowel Movements 1 2 5 8 Exam General: Mildly diaphoretic, well-developed, well-nourished, appropriately interactive HEENT: Normocephalic, atraumatic. External ears without defect. Neck: Supple with full range of motion. No jugular venous distension. Cardiovascular: Regular rate and rhythm with no murmurs, rubs, or gallops appreciated Pulmonary: Clear to auscultation bilaterally with no crackles, wheezes, or rhonchi. Normal respiratory effort with no use of accessory muscles. Abdomen: Bowel tones present. Soft, nontender, nondistended. No hepatosplenomegaly or masses appreciated. Extremities: No clubbing, cyanosis, edema, or lymphadenopathy appreciated. Plaque psoriasis on extensor surfaces of lower leg bilaterally Skin: Normal temperature, turgor, and texture; no ulcers, or subcutaneous nodules appreciated. Neurological: Cranial nerves grossly intact. Normal muscle strength, tone, and bulk. No known gait impairment. Psychiatric: Normal mood and affect, sleepy. Alert and oriented to person, place , and time. Lab and Diagnostics Result Diagram: 07/16/1660107/16/16601 X-Rays, CTs and MRIs CXr IMPRESSION: Normal for age, no evidence of cardiomegaly or CHF. Dictated by: Otis Betancur M.D. on 07/14/2016 at 15:47 Assessment & Plan 35-year-old gentleman with no significant past medical history came to emergency room due to Coffee-ground emesis,dark loose stool and epigastric pain of 3 days 1. Upper GI bleeding, POA, acute -Possibly due to alcoholic erosive gastritis,PUD possible -Continue IV fluids at 100ml/h -Continue Protonix, twice a day for 2 weeks then once a day. -Advance diet as tolerated -EGD showing esophagitis no ulcers -Serial hemoglobin [id number] -Zofran as needed 2. Dehydration with diarrhea, poa, active -Hemoglobin 17.9, hemoconcentrated -2 L Ns bolused on admission, continue with 100ml/h -Serial hematocrits [id number] -Stool PCR negative for infectious source 3. Transaminitis, improving -Likely due to alcohol consumption -Follow-up LFT with am CMP 4. Alcohol abuse disorder -Alcohol level 316 in ED, unlikely to withdraw now -watch out for withdrawal syndrome, -CIWA protocol initiated score is 11 and 13 overnight, and 9 this morning. -banana bag given in ED -Counseled regarding effects of alcohol and need to stop. When asked if he believes that he would be able to stop drinking alcohol he states that after this incident she knows he has to. -SW referral for outpatient resources information GI propholaxis:ppi twice a day, SCD's only for dvt ppx due to GI bleed Full code Pain Evaluation: Adequate Pain Control GI Prophylaxis: Proton Pump Inhibitor VTE Mechanical Devices: Intermittant Pneumatic CD Resuscitation Status: CPR: Attempt Resuscitation Attending Statement The patient was seen and examined together with Dr. Narvaez on 07/16/2016 and I agree with the history, exam and plan as outlined in the note above. Wihtney Narvaez DO Jul 16, 2016 07:21 Navin Krause MD Jul 17, 2016 14:07
[2016-07-17 00:34] VITALS: BP 136/76; PULSE 78; RESP 16; O2SAT 96
[2016-07-17] MEDS: 0.9% Sodium Chloride 1,000 ML IV SCH (03:17)
[2016-07-17 04:50] VITALS: BP 135/86; PULSE 77; RESP 16; O2SAT 98
[2016-07-17 05:17] VITALS: PULSE 72
[2016-07-17 05:58] LABS: BASOPHILS % (AUTO) 0.1 % (0-3); EOSINOPHILS % (AUTO) 5.7 % (0-5); MONOCYTES % (AUTO) 5.9 % (4-12); Mean Corpuscular Hemoglobin 30.2 pg (27.0-35.0); Mean Corpuscular Volume 87.3 fL (81-100); NEUTROPHILS % (AUTO) 66.2 % (40-74); Platelet Count 134 bil/L (150-400)
[2016-07-17 08:06] VITALS: BP 144/85; PULSE 56; RESP 18; O2SAT 97
[2016-07-17] MEDS: Pantoprazole 40 mg ER24 Tablet PO SCH (08:38)
[2016-07-17] MEDS: Multivit-Miner-Folic Acid-Iron Tablet PO SCH (08:39)
[2016-07-17] MEDS: Thiamine Inj 100 MG in 0.9% Sodium Chloride 100 ML IV SCH (08:39)
[2016-07-17 08:49] VITALS: PULSE 75
[2016-07-17] MEDS ORDERED: hydrOXYzine Pamoate 25 mg Capsule PO SCH (10:10)
[2016-07-17 12:21] VITALS: BP 139/88; PULSE 85; RESP 16; O2SAT 95
--- NOTE | 2016-07-17 14:15 | PCM.DIMED ---
Whitney Narvaez DO 07/17/16 1414: Discharge Instructions Date of Service Jul 17, 2016 Dates of Hospitalization Jul 14, 2016 at 18:38 Discharge Diagnosis Discharge Diagnosis 1. Severe esophagitis 2. Small sliding hiatal hernia 3. Alcohol withdrawal Medication Instructions Take hydroxyzine up to 3 times a day. This medicine is intended to help with anxiety. Test Results No detected bacteria or virus in your stool. Hemoglobin and hematocrit have remained stable Diet Other (abdomen I discussed going on there although nothing too exciting) Activity No restrictions Call your provider Fever or Chills, Shortness of breath, Bleeding (eat a diet low in acid that will be easy on your stomach, foods like applesauce, bananas, bland starches, broth, crackers will be easy on her stomach as he start reintroducing food.), Chest pain, Vomitting, Excessive diarrhea Patient Instructions Take hydroxyzine up to 3 times a day, this will help with her anxiety. Do not drink alcohol as this will irritate your esophagus and likely cause you to bleed again. You have gone through the withdrawal process. Findings a primary care provider to follow up with. Take Protonix twice a day before meals for the next 2 weeks, after that time he may take it just once a day. Follow-up plan Establish care with a primary care provider Follow-up Provider: [facility] Navin Krause MD 07/18/16 1234: Whitney Narvaez DO Jul 17, 2016 14:14 Navin Krause MD Jul 18, 2016 12:34
[2016-07-17] MEDS ORDERED: PANT40TA3 PO (14:45)
[2016-07-17] MEDS ORDERED: HYDR-3797 PO (14:45)
--- NOTE | 2016-07-17 18:31 | PCM.DC.MED ---
Discharge Summary Date of Service Jul 17, 2016 Dates of Hospitalization Date of Hospital Admission Jul 14, 2016 at 18:38 Date of Discharge: Jul 17, 2016 Providers: Admitting Physician: Je Arriola MD Primary Care Physician: Fe Attending Physician: Je Arriola MD Diagnosis at Time of Discharge Diagnosis at Time of Discharge 1. Severe esophagitis 2. Small sliding hiatal hernia 3. Alcohol withdrawal Procedures XRay, CTs & MRIs CXr IMPRESSION: Normal for age, no evidence of cardiomegaly or CHF. Dictated by: Otis Betancur M.D. on 07/14/2016 at 15:47 Invasive Procedures ENDOSCOPY PROCEDURE PATIENT: SUNNY ORONA : 1980 MR#: [id number] ADMIT: 07/14/2016 JOB ID: [id number] DATE OF SERVICE: 07/15/2016 PROCEDURE: Esophagogastroduodenoscopy with biopsy. INDICATIONS: A 35-year-old male with three days of coffee-grounds emesis. EQUIPMENT: [id number]. SEDATION: Monitored anesthesia as provided by Dr. Cole Mondragon. COMPLICATIONS: None identified. PROCEDURE INFORMATION: After the risks and benefits were explained, written and verbal informed consent was obtained. The patient was brought into the endoscopy suite and placed into the left lateral decubitus position. Sedation was achieved as above. The scope was introduced into the mouth through the bite block, and advanced under direct visualization through the oropharynx, esophagus, stomach, and on to the second portion the duodenum. The scope was slowly withdrawn to carefully examine the mucosa for any defects or lesions. Retroflexed views were accomplished in the stomach. The stomach was decompressed. The scope removed from the patient who tolerated the procedure well. FINDINGS: 1. Duodenum: No significant pathology was appreciated from the bulb through to the second portion. 2. Stomach: The patient had a diffuse nonspecific gastropathy seen throughout. No mass lesions. No ulcers. No outlet obstruction. Random biopsy was taken for exclusion of helicobacter or any other underlying histopathology. Retroflexed views of the LES were unremarkable. 3. Esophagus: The squamocolumnar junction generally correlated with the top of the gastric folds. The GE junction was at approximately 43 cm from the incisors and the diaphragmatic pinchcock was at about 44 cm from the incisors. For the distal 2-3 cm of the esophagus, there was evidence of friable LA grade D ulcerative and erosive esophagitis. ENDOSCOPIC DIAGNOSES: 1. Severe esophagitis. 2. Small sliding hiatal hernia. 3. Gastropathy. RECOMMENDATIONS: 1. Await histopathology. 2. Continue b.i.d. PPI therapy. The drip can be stopped this evening after his first oral dose of Protonix. 3. Following recovery from sedation, I see no reason the patient cannot be started on at least clear liquids and advanced as tolerated. 4. Continue to monitor and treat aggressively for alcohol withdrawal symptoms. 5. As mentioned in my consultation note, if he has any persisting symptoms, I would recommend further investigation with perhaps abdominal CT to exclude evolving appendicitis. 6. If helicobacter is found, it will need to be eradicated with standard triple therapy. 7. Long-term, obviously, the patient needs to become fully abstinent from alcohol. He would benefit likely from outpatient substance abuse counseling. 8. I would recommend he be on oral b.i.d. Protonix therapy for the next two weeks and then reduce it down to once daily thereafter. I would say that there is a reasonable chance he may be able to even taper off of that in the months to come if he is able to be successful at maintaining sobriety. Otto Goldberg MD 07/15/16 1512 Brief History History of present illness on admission: 35-year-old gentleman with no significant past medical history came to emergency room due to Coffee-ground emesis,dark loose stool and epigastric pain of 3 days. He states he had multiple episodes of coffee-ground emesis last 3 days. He also had dark loose stool. He complains of intermittent, colicky, nonradiating, epigastric pain,5-6/10. Drinks alcohol, 1/2 a fifth of Vodka daily. Last drink this morning Denies aspirin, NSAIDs or any blood thinner use . No abdominal distention or any stigmata of cirrhosis. Denies fever In ED, HR 108, BP 144/100, sats 95% on RA, WBC 10.0,Hb 17.9, platelets 290, AST 57, ALT 70, lipase 20, alcohol level 316 Hospital Course 35-year-old gentleman with no significant past medical history came to emergency room due to Coffee-ground emesis,dark loose stool and epigastric pain of 3 days 1. Upper GI bleeding, POA, acute -Likely due to alcoholic erosive and ulcerative esophagitis -IV fluids until tolerating oral intake -Continue Protonix, twice a day for 2 weeks then once a day. -Advance diet as tolerated -EGD showing esophagitis no ulcers -Serial hemoglobin remained relatively stable after dilution of hemoconcentrated state upon admission -Zofran as needed 2. Dehydration with diarrhea, poa, active -Hemoglobin 17.9, hemoconcentrated -2 L Ns bolused on admission -Serial hematocrits remained relatively stable after dilution of hemoconcentrated state upon admission -Stool PCR negative for infectious source 3. Transaminitis, resolved -Likely due to alcohol consumption -On day of discharge AST 31 ALP 40 alkaline phosphatase 63 4. Alcohol abuse disorder -Alcohol level 316 in ED -CIWA protocol initiated scores ranged from 0-13 -Hepatitis B and C negative -banana bag given in ED -Counseled regarding effects of alcohol and need to stop. When asked if he believes that he would be able to stop drinking alcohol he states that after this incident she knows he has to. - referral for outpatient resources information Exam Vital Signs (Last) Date Time Temp Pulse Resp B/P Pulse Ox O2 Delivery O2 Flow Rate FiO2 07/17/16 12:21 36.7 85 16 139/88 95 Room Air Exam General: Mildly anxious, well-developed, well-nourished, appropriately interactive HEENT: Normocephalic, atraumatic. External ears without defect. Neck: Supple with full range of motion. No jugular venous distension. Cardiovascular: Regular rate and rhythm with no murmurs, rubs, or gallops appreciated Pulmonary: Clear to auscultation bilaterally with no crackles, wheezes, or rhonchi. Normal respiratory effort with no use of accessory muscles. Abdomen: Bowel tones present. Soft, nontender, nondistended. No hepatosplenomegaly or masses appreciated. Extremities: No clubbing, cyanosis, edema, or lymphadenopathy appreciated. Skin: Plaque psoriasis on extensor surfaces of lower leg bilaterally otherwise normal temperature, turgor, and texture; no ulcers, or subcutaneous nodules appreciated. Neurological: Cranial nerves grossly intact. Normal muscle strength, tone, and bulk. No known gait impairment. Psychiatric: Normal mood and affect, sleepy. Alert and oriented to person, place , and time. Test 07/14/16 14:00 2/8/17 14:30 07/14/16 19:45 07/15/16 12:18 Magnesium Level 2.4mg/dL (1.6-2.6) Lipase 20U/L (13-60) Hold Galvez Top Tube Received (Received) Alcohol, Quantitative 316mg/dL (0-10) Urine Color Yellow (YELLOW) Urine Appearance Hazy (CLEAR,HAZY) Urine pH 6.5 (5.0-8.0) Urine Specific Arbuckle 1.025 (1.003-1.035) Urine Protein Negativemg/dL (NEG,TRACE) Urine Glucose (UA) Negativemg/dL (NEGATIVE) Urine Ketones Negativemg/dL (NEGATIVE) Urine Occult Blood Negative (NEGATIVE) Urine Nitrite Negative (NEGATIVE) Urine Bilirubin Negative (NEGATIVE) Urine Urobilinogen Normalmg/dL (NORMAL) Urine Leukocyte Esterase Negative (NEGATIVE) Urine RBC 0-2/hpf (0-2) Urine WBC 0-5/hpf (0-5) Urine Epithelial Cells None/hpf (NONE-MOD) Urine Crystals None seen (NONE SEEN) Urine Bacteria Few/hpf (NONE-FEW) Urine Hyaline Casts None/lpf (NONE) Urine Granular Casts None seen (NONE SEEN) Urine Waxy Casts None seen (NONE SEEN) Urine Red Blood Cell Casts None seen (NONE SEEN) Urine White Blood Cell Casts None seen (NONE SEEN) Urine Mucus Present (None Seen) Urine Trichomonas None seen (NONE SEEN) Urine Yeast None (NONE SEEN) Urinalysis Comment None Urine Culture Reflexed Not indicated Prothrombin Time 11.0sec (8.1-12.5) Prothromb Time International Ratio 1.03ratio Activated Partial Thromboplast Time 25.9sec (22.8-33.0) Phosphorus Level 2.7mg/dL (2.5-4.9) Ammonia 33ug/dL (18-53) Total Creatine Kinase 440U/L (21-232) Creatine Kinase MB 2.5ng/mL (0.0-10.4) Creatine Kinase MB % % (0.0-5.0) Vitamin B12 Level 458pg/mL (211-946) Hepatitis A IgM Antibody Negative (Negative) Hepatitis B Surface Antigen Negative (Negative) Hepatitis B Core IgM Antibody Negative (Negative) Hepatitis C Antibody <0.1s/co ratio (0.0-0.9) Hepatitis C Comment Comment (.) Test 07/16/16 13:16 07/17/16 05:10 Urine Opiates Screen Negative Urine Methadone Screen Negative Urine Barbiturates Screen Negative Urine Amphetamines Screen Negative Urine Benzodiazepines Screen Positive Urine Cocaine Metabolite Screen Negative Urine Cannabinoids Screen Negative White Blood Count 8.6th/mm3 (3.8-10.1) Red Blood Count 4.57mil/mm3 (4.40-5.80) Hemoglobin 13.8g/dL (13.8-17.2) Hematocrit 39.9% (41.0-50.0) Mean Corpuscular Volume 87.3fL (81-100) Mean Corpuscular Hemoglobin 30.2pg (27.0-35.0) Mean Corpuscular Hemoglobin Concent 34.6% (32.0-37.0) Red Cell Distribution Width 12.7% (12.3-15.4) Platelet Count 134bil/L (150-400) Neutrophils (%) (Auto) 66.2% (40-74) Lymphocytes (%) (Auto) 22.0% (14-46) Monocytes (%) (Auto) 5.9% (4-12) Eosinophils (%) (Auto) 5.7% (0-5) Basophils (%) (Auto) 0.1% (0-3) Sodium Level 140mEq/L (134-144) Potassium Level 3.7mEq/L (3.5-5.2) Chloride Level 103mEq/L (97-108) Carbon Dioxide Level 24mmol/L (18-29) Blood Urea Nitrogen 9mg/dL (6-20) Creatinine 0.77mg/dL (0.76-1.27) Estimat Glomerular Filtration Rate 124mL/min (>59) Glucose Level 121mg/dL (60-99) Calcium Level 8.4mg/dL (8.5-10.1) Total Bilirubin 0.6mg/dL (0.0-1.2) Aspartate Amino Transf (AST/SGOT) 31U/L (0-50) Alanine Aminotransferase (ALT/SGPT) 40U/L (0-44) Alkaline Phosphatase 63U/L (25-150) Total Protein 5.5g/dL (6.4-8.4) Albumin 3.6g/dL (3.4-5.0) Discharge Medications Discharge Medications Hydroxyzine Pamoate (HydrOXYzine Pamoate) 25 Mg Capsule 25 MG PO Q8H Prescribed by: KORY SLATER DO Pantoprazole (Pantoprazole DR) 40 Mg Tablet.dr 40 MG PO BIDAC Take twice a day for 2 weeks then take once per day before meals Prescribed by: KORY SLATER DO Additional med instructions Take hydroxyzine up to 3 times a day. This medicine is intended to help with anxiety. Followup Plan Follow-up plan Establish care with a primary care provider Discharge Diet: Other (abdomen I discussed going on there although nothing too exciting) Discharge Activity: No restrictions Patient Instructions Take hydroxyzine up to 3 times a day, this will help with her anxiety. Do not drink alcohol as this will irritate your esophagus and likely cause you to bleed again. You have gone through the withdrawal process. Findings a primary care provider to follow up with. Take Protonix twice a day before meals for the next 2 weeks, after that time he may take it just once a day. Follow-up Provider: [facility] Provider: Rl Marrero PA-C Follow-up in: 1 week Time spent 40 minutes Attending Statement The patient was seen and examined together with on 07/17/2016 and I agree with the history, exam and plan as outlined in the note above. copies to: Rl Marrero PA-C, Erika R DO Jul 17, 2016 18:31 Navin Krause MD Jul 18, 2016 12:34
--- NOTE | 2016-07-19 13:52 | PATH ---
SURGICAL PATHOLOGY Attending Physician:Rufina Haley CASE STATUS: Signed Out PATIENT NAME: SUNNY ORONA PID: [id number] : 1980 DATE COLLECTED:07/15/2016 00:00 SPECIMEN: Gastric, Biopsy CLINICAL HISTORY: GASTRIC BX FINAL DIAGNOSIS: 1.GASTRIC BIOPSY: DIFFUSE MILD CHRONIC GASTRITIS INVOLVING ANTRAL MUCOSA. Negative for evidence of Helicobacter. Negative for intestinal metaplasia. Negative for dysplasia and malignancy. ICD10 code K29.70 GROSS DESCRIPTION: Received in formalin, labeled with the patient' s name and "gastric biopsy", is one fragment of hawthorne, soft tissue measuring 0.2 x 0.2 x 0.2 cm. The fragment is totally submitted in cassette 1A. ([id number]) MICRO DESCRIPTION: See diagnosis. ICD-9 CODES: CPT CODES: 1: 74884 Electronically Signed Out Otto Car MD [facility] [address], [place] [address] Technical component performed at [facility], [facility] [address], [place], [address]
== END 2016-07-17 16:00 | disposition home or self-care (01) | DRG 392 ==
LOC: SED 13:01 → MPC 18:38
PROVIDERS: ADMIT Internal Medicine; ATTEND Internal Medicine
PROC: 0DB68ZX Excision of Stomach, Via Natural or Artificial Opening Endoscopic, Diagnostic (ICD-10-PCS; principal; 2016-07-15 14:30)
DX: K20.8 Other esophagitis (principal); E86.0 Dehydration; R11.2 Nausea with vomiting, unspecified; F10.10 Alcohol abuse, uncomplicated; K44.9 Diaphragmatic hernia without obstruction or gangrene; Y90.8 Blood alcohol level of 240 mg/100 ml or more